=== PATIENT | male | born 1990 | race Caucasian/White ===

== ENCOUNTER 2017-02-26 07:48 | Emergency (ER) | payer OTHER ==
[2017-02-26] MEDS: FAMOTIDINE 20 MG/50 ML IVPB 50 ML IVPB ONE ×2 (08:05→08:31)
[2017-02-26] MEDS: methylPREDNISolone NA SUCC 125 MG/2 ML VIAL IVPB ONE ×2 (08:05→08:31)
--- NOTE | 2017-02-26 08:24 | PDOC ---
History of Present Illness - General Chief Complaint: Allergic Reaction Stated Complaint: RASH ALLERGIC REACTION Time Seen by Provider: 02/26/17 08:17 - History of Present Illness Initial Comments: 02/26/17 08:20 Male with a negative past medical history He is on no medications, NKDA Patient states that he ate tuna last night, for the first time Sometime during the night he started becoming itchy, and by this morning he had diffuse hives and itchiness He denies any tongue swelling, uvula swelling, or difficulty speaking or shortness of breath He denies any wheezing He denies any facial swelling He denies any other symptoms He denies any new ikxn-yvx-jitffgw medications, or any other new food Past History - Past Medical History Allergies/Adverse Reactions: Allergies Allergy/AdvReac Type Severity Reaction Status Date / Time No Known Allergies Allergy Unverified 02/26/17 08:28 Home Medications: Ambulatory Orders Prednisone [Deltasone -] 20 mg PO DAILY #15 tablet 02/26/17 Suicide Attempt (Hx): No - Psycho/Social/Smoking Cessation Hx Anxiety: No Suicidal Ideation: No Smoking History: Never smoked Have you smoked in the past 12 months: No Hx Alcohol Use: No Substance Use Type: None *Physical Exam - Physical Exam Comments: 02/26/17 08:21 Physical exam GENERAL: The patient is awake, alert, and fully oriented, and in no apparent distress. HEAD: Normal with no signs of trauma. EYES: sclera anicteric, conjunctiva are normal. ENT: nares patent, oropharynx clear without exudates. Moist mucous membranes. There is no tongue swelling or uvula swelling There is no facial swelling or lip swelling NECK: Normal range of motion, supple LUNGS: Breath sounds equal, clear to auscultation bilaterally. No wheezes, and no crackles. HEART: Regular rate and rhythm, normal S1 and S2 without murmur, rub or gallop. ABDOMEN: Soft, nontender, normoactive bowel sounds. No guarding, no rebound. No masses appreciated. EXTREMITIES: Normal range of motion, no edema. No clubbing or cyanosis. No cords, erythema, or tenderness. NEUROLOGICAL: Cranial nerves II through XII grossly intact. Normal speech, normal gait. PSYCH: Normal mood, normal affect. SKIN: There are diffuse hives and erythema, especially on the buttocks, skin creases, chest, and axilla Also in the popliteal area, and elbow creases Medical Decision Making - Medical Decision Making 02/26/17 08:23 Acute ALLERGIC reaction to tuna Will treat with IV solu Medrol Benadryl and Pepcid and reevaluate 02/26/17 10:08 Patient markedly improved after medications Will discharge to with a prednisone taper, Benadryl, and Pepcid Patient was instructed not to eat tuna fish again *DC/Admit/Observation/Transfer Diagnosis at time of Disposition: Allergic reaction - Discharge Dispostion Disposition: HOME Condition at time of disposition: Improved - Prescriptions Prescriptions: Prednisone [Deltasone -] 20 mg PO DAILY #15 tablet - Referrals Referrals: Chris Lawrence MD [Staff Physician] - Rosalba Alexander MD [Staff Physician] - Vinicio Mishra MD [Staff Physician] - - Patient Instructions Printed Discharge Instructions: DI for General Allergic Reactions, DI Fish Allergy Additional Instructions: Prednisone taper as directed-start later this afternoon Benadryl fyzd-snp-jdavvts-one pill every 6-8 hours for 24-48 hours Pepcid pizj-rdq-ehipgox-one pill twice a day for the next few days Please take all medications as directed Do not eat anymore tunafish Followup with your primary care physician in 24-48 hours Return immediately if you worsen in any way Take your medications as directed - Post Discharge Activity Work/School Note: Back to Work
[2017-02-26 08:27] VITALS: BMI 52.0
[2017-02-26 08:56] VITALS: BP 109/59; PULSE 55; TEMP 98
== END 2017-02-26 10:23 | disposition home or self-care (01) ==
LOC: FER 07:48
PROC: 3E033GC Introduction of Other Therapeutic Substance into Peripheral Vein, Percutaneous Approach (ICD-10-PCS; principal; 2017-02-26)
DX: T78.40XA Allergy, unspecified, initial encounter (principal); X58.XXXA Exposure to other specified factors, initial encounter
CPT/HCPCS: 99282-25